=== PATIENT | male | born 1990 | race African-American/Black ===

== ENCOUNTER 2019-11-29 00:21 | Emergency (ER) | payer SELFPAY ==
[~2019-11-29] VITALS: Ht 182.9 cm; Wt 90.7 kg
[2019-11-29] MEDS ORDERED: IPRATROPIUM NEB FS 0.5 MG/2.5 ML AMPUL.NEB NEB ONE ×2 (00:30→05:00)
[2019-11-29] MEDS ORDERED: ALBUTEROL FS 2.5 MG/3 ML VIAL.NEB CONTNEB ONE ×3 (00:30→08:30)
[2019-11-29] MEDS ORDERED: IV NS 0.9% 1,000 ML IV ONE (00:30)
[2019-11-29] MEDS ORDERED: methylPREDNISolone SOD SUCC 125 MG/2ML VIAL IV ONE (00:30)
--- NOTE | 2019-11-29 00:31 | NUR ---
PT PRESENTED TO THE ER WITH A C/O ASTHMA EXACERBATION. BILATERAL WHEEZES NOTED. PT IS SLIGHTLY LABORED WITH RESP 20-22. PT AMBULATED TO ER 7 WITH A STEADY GAIT. PT WAS PLACED ON THE MONITOR AND CONTINUOUS PULSE OX.
[2019-11-29] MEDS ORDERED: methylPREDNISolone SOD SUCC 125 MG/2ML VIAL ONE (00:32)
[2019-11-29] MEDS ORDERED: ALBUTEROL FS 2.5 MG/3 ML VIAL.NEB ONE ×5 (00:33→08:17)
[2019-11-29] MEDS ORDERED: IPRATROPIUM NEB FS 0.5 MG/2.5 ML AMPUL.NEB ONE ×2 (00:33→04:41)
[2019-11-29] MEDS ORDERED: Magnesium 1GM/D5W 100ML PREMIX 200 ML IV ONE (01:05)
[2019-11-29] MEDS ORDERED: Magnesium 1 GM/2 ML VIAL IV ONE (01:30)
--- NOTE | 2019-11-29 01:43 | NUR ---
RT pt arrived to c/o sob due to wheezing. lung sounds: throughout tight wheeze. pt received neb tx. post tx, lung sounds free air movement with wheeze. pt states feeling better post tx.
--- NOTE | 2019-11-29 02:34 | NUR ---
PT APPEARS TO BE RESTING COMFORTABLY WITH NO S/S OF PAIN OR DISTRESS. RESP ARE EVEN AND UNLABORED. O2 SAT IS 97% ON RA.
--- NOTE | 2019-11-29 03:01 | NUR ---
PT APPEARS TO BE RESTING COMFORTABLY WITH NO S/S OF PAIN OR DISTRESS.
--- NOTE | 2019-11-29 03:20 | NUR ---
Note wallace in [facility] - 11/29/19 at [email or web address] FERGUSON IS AT THE BEDSIDE AND IS NOT HAPPY WITH THE PT'S CONDITION. PT TO BE ADMITTED.
--- NOTE | 2019-11-29 04:20 | NUR ---
DR FERGUSON IS AT THE BEDSIDE AND IS NOT HAPPY WITH THE PT'S CONDITION. PT TO BE ADMITTED.
--- NOTE | 2019-11-29 04:30 | NUR ---
Lesia gnosalez in [facility] - 11/29/19 at 0441 by [email or web address] PT IS GOING TO TELE 320-1
--- NOTE | 2019-11-29 04:37 | NUR ---
CALLING NURSING [facility] FOR TELE BED.
--- NOTE | 2019-11-29 04:40 | NUR ---
PT IS GOING TO TELE 320-1
--- NOTE | 2019-11-29 04:41 | NUR ---
CALLING REPORT TO TELE NURSE.
[2019-11-29] MEDS ORDERED: ALBUTEROL FS 2.5 MG/0.5 ML VIAL.NEB NEB ONE (05:00)
--- NOTE | 2019-11-29 05:00 | NUR ---
ADMISSION PACKET PROVIDED TO [facility].
--- NOTE | 2019-11-29 05:07 | NUR ---
PT IS BEING PLACED ON 2L O2 VIA NC.
--- NOTE | 2019-11-29 05:22 | NUR ---
PT ASSIGNED TO 120-2
[2019-11-29 05:25] LABS: BASOPHILS % (AUTO) 0.2 % (0.0-2.0); EOSINOPHILS % (AUTO) 0.1 % (0.0-6.0); HEMATOCRIT 45 % (39-51); HEMOGLOBIN 15.5 g/dL (13.5-17.5); LYMPHOCYTES # (AUTO) 0.2 /CMM (0.8-4.8); LYMPHOCYTES % (AUTO) 2.1 % (20.0-44.0); MEAN CORPUSCULAR HGB CONC 35 g/dl (31.0-36.0); MEAN CORPUSCULAR VOLUME 100 fL (80-96); MONOCYTES % (AUTO) 0.5 % (2.0-12.0); NEUTROPHILS # (AUTO) 8.4 /CMM (1.8-8.9); NEUTROPHILS % (AUTO) 97.1 % (43.0-81.0); PLATELET COUNT (AUTO) 265 /CMM (150-450); RED BLOOD CELL COUNT(AUTO) 4.52 MIL/uL (4.5-6.0); WHITE BLOOD COUNT (AUTO) 8.6 K/uL (4.3-11.0)
--- NOTE | 2019-11-29 05:32 | NUR ---
PT DOES NOT WANT TO BE ADMITTED TO THE HOSPITAL. PT STATED THAT HE HAS TO TAKE A FLIGHT TO [facility] [place]. PT IS LOOKING FOR PREDNISONE AND A BREATHING TX.
[2019-11-29] MEDS ORDERED: predniSONE 10 MG TABLET ONE (05:38)
[2019-11-29] MEDS ORDERED: predniSONE 20 MG TABLET ONE (05:39)
--- NOTE | 2019-11-29 05:40 | NUR ---
DR FERGUSON IS AT THE BEDSIDE SPEAKING TO THE PT RE: LEAVING AMA. PT STATED: "IF YOU GIVE ME A BREATHING TX AND SOME PREDNISONE I WILL BE OK. I KNOW MY BODY". STATED THAT SHE WOULD GIVE THE PT THE PREDNISONE, BUT HE WOULD STILL HAVE TO SIGN OUT AMA.
[2019-11-29 05:41] LABS: ALANINE AMINOTRANSFERASE 32 U/L (12-78); ALBUMIN 4.3 g/dL (3.4-5.0); ALKALINE PHOSPHATASE 77 U/L (46-116); ASPARTATE AMINOTRANSFERASE 26 U/L (15-37); B-TYPE NATRIURETIC PEPTIDE 54 PG/ML (0-125); BILIRUBIN,DIRECT 0.1 mg/dL (0.0-0.2); BILIRUBIN,TOTAL 0.5 mg/dL (0.2-1.0); CALCIUM, SERUM 8.5 mg/dL (8.5-10.1); CARBON DIOXIDE 24 mmol/L (21-32); CHLORIDE 104 mmol/L (98-107); CREATININE 1.3 mg/dL (0.6-1.3); GLUCOSE 169 mg/dL (74-106); POTASSIUM 4.4 mmol/L (3.5-5.1); SODIUM SERUM 138 mmol/L (136-145); TOTAL PROTEIN, SERUM 7.4 g/dL (6.4-8.2); UREA NITROGEN, BLOOD 15 mg/dL (7-18)
--- NOTE | 2019-11-29 05:51 | NUR ---
PT REC'D A BREATHING TX. PT REC'D MEDICATION ORDERED.
[2019-11-29] MEDS ORDERED: predniSONE 50 MG TABLET PO ONE (06:00)
--- NOTE | 2019-11-29 07:00 | NUR ---
PT APPEARS TO BE SLEEPING SOUNDLY. PT'S O2 SAT IS 94%
--- NOTE | 2019-11-29 07:12 | NUR ---
REPORT GIVEN TO CHARI PADRON FOR TARYN.
--- NOTE | 2019-11-29 07:44 | NUR ---
RECEIVED REPORT FROM OLGA SANDRA FOR TARYN, PT IS AAOX4, NOT IN RESPIRATORY DISTRESS, V/S STABLE, KEPT RESTED AND COMFORTABLE, WILL CONTINUE TO MONITOR. PT STATED HE DOESNT WANT TO BE ADMITTED MD AWARE.
--- NOTE | 2019-11-29 08:16 | NUR ---
RT AT BEDSIDE FOR BREATHING TREATMENT.
[2019-11-29 09:05] VITALS: BP 138/61
--- NOTE | 2019-11-29 09:05 | NUR ---
Patient does not wish to proceed with medical care recommended by Dr. Blair. Patient given information related to possible complications, up to and including , which could occur as a result of leaving the hospital at this time. Patient verbalizes understanding of risks involved due to leaving against medical advice. Patient has signed AMA form.
--- NOTE | 2019-11-29 09:05 | NUR ---
IV removed. Catheter intact and site benign. Pressure and 4x4 applied to site. No bleeding noted. Patient discharged to home in stable condition. Written and verbal after care instructions given. Patient verbalizes understanding of instruction.
== END 2019-11-29 09:07 | disposition left against medical advice (07) ==
LOC: ER 00:23
DX: J45.901 Unspecified asthma with (acute) exacerbation (principal); R06.03 Acute respiratory distress
CPT/HCPCS: 36415; 71045; 80048; 80076; 83880; 84484; 85025; 87081; 93005; 94640 ×2; 94799; 96365; 96375; 99291; J2930; J3475; J7030; J7512 ×2